=== PATIENT | female | born 1965 | race Native Hawaiian/Other Pacific Islander ===

== ENCOUNTER 2021-12-09 12:43 | Outpatient (CLI) | payer OTHER ==
[~2021-12-09] VITALS: Ht 165.1 cm; Wt 73.9 kg
== END 2021-12-09 20:26 | disposition home or self-care (01) ==
LOC: INF 12:43
PROVIDERS: ATTEND Internal Medicine Endocrinology, Diabetes & Metabolism
DX: U07.1 COVID-19 (principal); Z23 Encounter for immunization
CPT/HCPCS: 96365; Q0247